=== PATIENT | male | born 1960 | race African-American/Black ===

== ENCOUNTER 2019-06-26 21:13 | Emergency (ER) | payer MEDICARE, MEDICAID ==
[~2019-06-26] VITALS: Ht 188 cm; Wt 97.5 kg
[2019-06-26 21:58] LABS: Basophils # (auto) 0 uL; Basophils % (auto) 0.3 % (0.0-2.0); Eosinophils # (auto) 0 uL; Eosinophils % (auto) 0.4 % (0.0-7.0); Hematocrit 44.1 % (41.0-53.0); Hemoglobin 14.5 g/dL (13.5-17.5); Lymphocytes # (auto) 0.8 uL; Mean Corpuscular Hemoglobin 29.1 pg (28.0-32.0); Mean Corpuscular Hgb Conc. 32.9 g/dL (32.0-36.0); Mean Corpuscular Volume 88.6 fL (80.0-100.0); Monocytes # (auto) 0.6 uL; Monocytes % (auto) 7.1 % (0.0-12.0); Neutrophils # (auto) 7.2 uL; Neutrophils % (auto) 83.2 % (37.0-80.0); Nucleated Red Blood Cells % 0.1 %; Platelet Count (auto) 141 10^3/uL (140-450); Red Blood Cells 4.97 10^6/uL (4.5-5.90); Red Cell Distribution Width 13.6 % (11.8-14.3); White Blood Cell 8.6 10^3/uL (4.4-10.8)
[2019-06-26 22:15] LABS: Alanine Aminotransferase 13 U/L (16-61); Albumin 3.9 g/dL (3.4-5.0); Anion Gap 6 (5-15); Aspartate Aminotransferase 7 U/L (15-37); BUN/Creatinine Ratio 13.1; Blood Urea Nitrogen 25 mg/dL (7-18); Carbon Dioxide 26 mmol/L (21-32); Chloride 109 mmol/L (98-107); GFR African American 46 mL/min; GFR Non-African American 38 mL/min; Glucose 100 mg/dL (74-106); Potassium 4.1 mmol/L (3.5-5.1); Sodium 141 mmol/L (136-145)
[2019-06-26 22:19] LABS: Alkaline Phosphatase 45 U/L (45-117); Bilirubin, Total 1.5 mg/dL (0.2-1.0); Total Protein 7.7 g/dL (6.4-8.2)
[2019-06-26 22:36] LABS: Urine Bacteria FEW /hpf (None Seen); Urine Blood Negative /uL (Negative); Urine Hyaline Cast MANY /lpf (0 - 2); Urine Mucus FEW (None Seen); Urine Specific Gravity 1.022 (1.001-1.035); Urine Sperm PRESENT /hpf (None Seen); Urine WBC 11 /hpf (0 - 3)
[2019-06-27] MEDS ORDERED: HYDROcodone-ACET 10/325MG TAB PO ONE (03:30)
[2019-06-27] MEDS ORDERED: LORazepam 0.5 MG TAB PO ONE (03:30)
[2019-06-27 04:50] VITALS: BP 133/80
== END 2019-06-27 05:23 | disposition home or self-care (01) ==
LOC: ER 21:16
DX: S46.911A Strain of unspecified muscle, fascia and tendon at shoulder and upper arm level, right arm, initial encounter (principal); R55 Syncope and collapse; I10 Essential (primary) hypertension; R51 Headache; F41.9 Anxiety disorder, unspecified; W19.XXXA Unspecified fall, initial encounter; Y93.01 Activity, walking, marching and hiking; Y92.89 Other specified places as the place of occurrence of the external cause; Y99.8 Other external cause status
CPT/HCPCS: 36415; 70450; 73030; 80053; 81001; 82962; 84484; 85025; 93005